=== PATIENT | female | born 1980 | race Caucasian/White ===

== ENCOUNTER 2018-04-16 23:10 | Emergency (ER) | payer OTHER ==
[2018-04-17 02:18] LABS: URINE PH (Dip) POC 5.5 (5.0-8.5)
[2018-04-17 02:18] LABS: URINE BLOOD (Dip) POC 3+ (NEGATIVE); URINE GLUCOSE (Dip) POC Negative (NEGATIVE); URINE KETONES (Dip) POC Trace (NEGATIVE); URINE LEUKOCYTE EST (Dip) POC Negative (NEGATIVE); URINE NITRITE (Dip) POC Positive (NEGATIVE); URINE TOTAL PROTEIN POC 3+ (NEGATIVE)
[2018-04-17 02:19] LABS: ADD MAN DIFF? NO
[2018-04-17 02:51] LABS: BASOPHIL # 0.1 10^3/ul (0.0-0.1); BASOPHILS % 0.9 % (0.0-2.0); EOSINOPHILS # 0.4 10^3/ul (0.0-0.5); EOSINOPHILS % 2.6 % (0.0-7.0); HEMATOCRIT 32.4 % (37.0-47.0); HEMOGLOBIN 10.3 g/dl (12.0-16.0); LYMPHOCYTES # 3.4 10^3/ul (0.8-2.9); LYMPHOCYTES % 22.6 % (15.0-51.0); MEAN CORPUSCULAR HEMOGLOBIN 24.3 pg (29.0-33.0); MEAN CORPUSCULAR HGB CONC 31.8 g/dl (32.0-37.0); MEAN CORPUSCULAR VOLUME 76.4 fl (82.0-101.0); MEAN PLATELET VOLUME 10.7 fl (7.4-10.4); MONOCYTE # 0.9 10^3/ul (0.3-0.9); MONOCYTES % 6.2 % (0.0-11.0); NEUTROPHIL # 9.9 10^3/ul (1.6-7.5); NEUTROPHILS % 65.2 % (39.0-77.0); PLATELET COUNT 238 10^3/UL (140-415); RED BLOOD COUNT 4.24 10^6/ul (4.20-5.40); RED CELL DISTRIBUTION WIDTH 17.9 % (11.5-14.5)
[2018-04-17 02:51] LABS: WHITE BLOOD COUNT 15.1 10^3/ul (4.8-10.8)
== END 2018-04-17 04:11 | disposition home or self-care (01) ==
LOC: FTE 23:10
DX: N30.01 Acute cystitis with hematuria (principal); R40.2412 Glasgow coma scale score 13-15, at arrival to emergency department
CPT/HCPCS: 81003; 81025; 85025; 99283

== ENCOUNTER 2019-01-02 06:17 | Day surgery (SDC) | payer OTHER ==
[2019-01-02] MEDS ORDERED: PROPOFOL 20 ML (08:31)
[2019-01-02] MEDS ORDERED: LIDOCAINE 2% (SDV) 5 ML INJ (08:31)
[2019-01-02] MEDS ORDERED: SUCCINYLCHOLINE CHLORIDE 100 MG/5 ML SYG IV (09:24)
[2019-01-02] MEDS ORDERED: FENTAnyl 50 MCG/ML VIAL IV (09:30)
[2019-01-02] MEDS ORDERED: ALBUTEROL 0.083% (NEB) 2.5 MG/3 ML AMP HHN (09:30)
[2019-01-02] MEDS ORDERED: HYDROmorphONE 1 MG/5 ML IV SYRINGE IV ×3 (09:30)
[2019-01-02] MEDS ORDERED: ACETAMINOPHEN 325 MG TAB PO (09:30)
[2019-01-02] MEDS ORDERED: METOCLOPRAMIDE 10 MG INJ IV (09:30)
[2019-01-02] MEDS ORDERED: DIPHENHYDRAMINE 50 MG INJ IV (09:30)
[2019-01-02] MEDS ORDERED: MEPERIDINE 25 MG INJ IV (09:30)
[2019-01-02] MEDS ORDERED: ONDANSETRON 4 MG INJ IV (09:30)
[2019-01-02] MEDS: FENTAnyl 50 MCG/ML VIAL IV ×2 (09:37→09:58)
== END 2019-01-02 10:56 | disposition home or self-care (01) ==
LOC: SDS 06:17
DX: N84.0 Polyp of corpus uteri (principal); N92.0 Excessive and frequent menstruation with regular cycle
CPT/HCPCS: 58558; 84702; 86850; 86900; 86901; 88305

== ENCOUNTER 2019-05-14 02:33 | Emergency (ER) | payer OTHER | END 2019-05-14 04:09 | disposition home or self-care (01) | LOC: FTE 02:33 | DX: F41.9 Anxiety disorder, unspecified (principal); F17.210 Nicotine dependence, cigarettes, uncomplicated | CPT/HCPCS: 93005; 99283-25 ==

== ENCOUNTER 2019-06-29 07:52 | Day surgery (SDC) | payer OTHER ==
[2019-06-29] MEDS ORDERED: LIDOCAINE 4% SOLUTION 50 ML BTL (09:24)
[2019-06-29] MEDS ORDERED: LIDOCAINE 2% (SDV) 5 ML INJ (09:54)
[2019-06-29] MEDS ORDERED: FENTAnyl 50 MCG/ML VIAL (09:54)
[2019-06-29] MEDS ORDERED: PROPOFOL 40 ML (09:54)
[2019-06-29] MEDS ORDERED: ETOMIDATE 20 MG INJ (09:54)
== END 2019-06-29 13:47 | disposition home or self-care (01) ==
LOC: GIL 07:52
DX: Z12.11 Encounter for screening for malignant neoplasm of colon (principal); K29.50 Unspecified chronic gastritis without bleeding
CPT/HCPCS: 43239; 84703; 88305; 88312